=== PATIENT | female | born 1950 | race African-American/Black ===

== ENCOUNTER → 2016-10-04 | Outpatient (CLI) | payer OTHER ==
[2016-02-01 12:23] VITALS: BP 109/64
[~2016-10-04] MED LIST: BENZ100C PO; CYCL10TA2 PO; FURO-68 PO; IOHEXOL 300 MG/ML 75 ML VIAL IV ONE; LINA290C PO; LOSA50TA6 PO; LUBI24CA7 PO; METF500T4 PO; NORE-83 PO; OMEP40CA5 PO; PANT40TA3 PO; POTA20TA12 PO; SUCR1TAB35 PO; TRIA1TAB PO
[2016-10-04 08:56] LABS: CALCIUM 8.3 mg/dL (8.5-10.1); CREATININE 0.7 mg/dL (0.6-1.0); GFR 101.9; POTASSIUM 3.4 mmol/L (3.5-5.1)
--- NOTE | 2016-10-04 10:36 | RAD ---
INDICATION: Cough COMPARISON: None. TECHNIQUE: Axial CT images obtained through the chest. Intravenous contrast utilized. FINDINGS: 6 mm nodule along the fissure on the left. No evidence of pneumothorax. Mild groundglass opacities at lung bases. Postoperative changes at partially visualized upper abdomen. Probable cyst at partially visualized left kidney. Measures approximately 3 cm but only partially seen. Calcific atherosclerosis including of the coronary arteries. Suspected left lobe of thyroid nodule. Mildly prominent lymph node precarinal region measuring 8-9 mm short axis. IMPRESSION: 1. Minimal groundglass opacities dependently. Most likely cause is atelectasis but small regions of airway inflammation are not excluded. 2. Calcific atherosclerosis including coronary arteries. 3. Left lung pulmonary nodule along the fissure. Could be secondary to a fissural lymph node but a follow-up could be obtained in 6-12 months to ensure no growth. 4. Possible thyroid nodule. PQRS Compliance Statement: One or more of the following individualized dose reduction techniques were utilized for this examination: 1. Automated exposure control 2. Adjustment of the mA and/or kV according to patient size 3. Use of iterative reconstruction technique
== END | disposition home or self-care (01) ==
LOC: CT 07:43
PROVIDERS: ATTEND Internal Medicine
DX: I25.10 Atherosclerotic heart disease of native coronary artery without angina pectoris (principal)
CPT/HCPCS: 36415; 71260; 80048; Q9967

== ENCOUNTER → 2016-10-24 | Outpatient (CLI) | payer OTHER ==
[2016-02-01 12:23] VITALS: BP 109/64
[~2016-10-24] MED LIST changes: -IOHEXOL 300 MG/ML 75 ML VIAL IV ONE
--- NOTE | 2016-10-24 13:54 | KCIC ---
Thyroid ultrasound HISTORY: Nodule on CT scan.. COMPARISON: None are available FINDINGS: Right lobe: Measures 3.8 cm x 1.4 cm x 1.2 cm. 12 mm cyst identified near the upper pole, with internal echogenic reflectors likely indicative of calcifications. No significant hypervascularity. Multiple additional small subcentimeter nodules or cysts. Left lobe: 3.6 cm x 1.4 cm x 1.2 cm in size. Cyst in the upper pole measures 9 mm long axis. There is a small mural nodule within this cyst. Second smaller cyst just superior to this, measures 5 mm long axis diameter with some internal reflectors or calcifications. No significant or concerning hypervascularity identified. There are multiple additional smaller subcentimeter nodules versus cysts. Isthmus: Measures 1.5 mm thickness. IMPRESSION: Multiple bilateral thyroid cysts and nodules. One dominant lesion on the right and 2 dominant lesions on the left with internal complexity, recommend follow-up with thyroid ultrasound. Electronically signed by: Todd Encarnacion MD (10/24/2016 1:51 PM) [id number]
--- NOTE | 2016-10-24 14:12 | KCIC ---
DEXA study Indication: Osteoporosis screening Findings: The bone mineral density of the lumbar spine L1-L4 1.007 g/cm^2 T score: -0.4 The average bone mineral density of the left femur: 0.858 g/cm^2 T score of -0.7. According to the world health organization (WHO): Normal: T score at or above -1 standard deviation Osteopenia: T score between -1 and -2.5 standard deviations Osteoporosis: T score at or below -2.5 standard deviations. Impression: Bone mineral density within normal limits. Electronically signed by: Joesph Conroy MD (10/24/2016 2:09 PM) [place] [id number]
== END | disposition home or self-care (01) ==
LOC: KCIC US 12:45
PROVIDERS: ATTEND Internal Medicine
DX: Z12.31 Encounter for screening mammogram for malignant neoplasm of breast (principal); Z13.820 Encounter for screening for osteoporosis; E04.1 Nontoxic single thyroid nodule; Z78.0 Asymptomatic menopausal state
CPT/HCPCS: 76536; 77080; G0202; 77067

== ENCOUNTER → 2016-11-06 | Outpatient (CLI) | payer OTHER ==
[2016-02-01 12:23] VITALS: BP 109/64
--- NOTE | 2016-11-07 08:47 | KCIC ---
Right breast ultrasound: Reason for examination: Right breast density. Comparison is made to mammographic examination dated 10/24/2016. Ultrasound examination was performed with attention to the medial right breast. A vascular structure present in the 4:00 position shows suggestion of some mild fusiform dilatation. This may correspond to the area of mammographic concern. No other focal cystic or solid lesions are identified. IMPRESSION: No suspicious breast parenchymal lesions identified. Mild fusiform dilatation of an artery at the 4:00 position. Recommend reevaluation in 6 months with mammograms and ultrasound. BI-RADS Category 3: Probably Benign. "Our facility is accredited by the [employer] Mammography Program." This patient's information has been entered into a reminder system for the patient to be notified with the results of her examination and a target date for the next mammogram. Electronically signed by: Tisha Curtis MD (11/07/2016 8:44 AM) [id number]
== END | disposition home or self-care (01) ==
LOC: KCIC US 09:41
PROVIDERS: ATTEND Internal Medicine
DX: N63 Unspecified lump in breast (principal)
CPT/HCPCS: 76641

== ENCOUNTER → 2017-06-24 | Outpatient (CLI) | payer MEDICARE ==
[~2017-06-24] MED LIST changes: -BENZ100C PO; +CONTRAST GIVEN MC; -CYCL10TA2 PO; -FURO-68 PO; +IOHEXOL 300 MG/ML 100ML VIAL. IV; -LINA290C PO; -LOSA50TA6 PO; -LUBI24CA7 PO; -METF500T4 PO; -NORE-83 PO; -OMEP40CA5 PO; -PANT40TA3 PO; -POTA20TA12 PO; -SUCR1TAB35 PO; -TRIA1TAB PO
[2017-06-24 10:58] LABS: ISTAT CREATININE 0.6 mg/dL (0.6-1.1)
== END | disposition home or self-care (01) ==
LOC: KCIC CT 09:39
DX: J84.9 Interstitial pulmonary disease, unspecified (principal); J40 Bronchitis, not specified as acute or chronic; I25.10 Atherosclerotic heart disease of native coronary artery without angina pectoris; R91.8 Other nonspecific abnormal finding of lung field
CPT/HCPCS: 71250; 82565

== ENCOUNTER → 2017-11-19 | Outpatient (CLI) | payer MEDICARE ==
[2016-02-01 12:23] VITALS: BP 109/64
[~2017-11-19] MED LIST changes: +BENZ100C PO; -CONTRAST GIVEN MC; +CYCL10TA2 PO; +FURO-68 PO; -IOHEXOL 300 MG/ML 100ML VIAL. IV; +LINA290C PO; +LOSA50TA7 PO; +LUBI24CA7 PO; +METF500T16 PO; +NORE-83 PO; +OMEP40CA5 PO; +PANT40TA3 PO; +POTA20TA12 PO; +SUCR1TAB35 PO; +TRIA1TAB PO
--- NOTE | 2017-11-19 16:09 | RAD ---
LUNG VENT/PERFUSION SCAN(VQ), CHEST PA LATERAL Clinical indications: History of pulmonary embolism in July 2017, patient on Warfarin, smoked for 40 years. 2 VIEW CHEST X-RAY Comparison: June 17, 2017. Findings: No acute lung infiltrate or pleural effusion or pulmonary edema or lung mass or pneumothorax is seen. The heart size, pulmonary vasculature, mediastinum and both sukhjinder are unremarkable. The osseous structures appear intact. Impression: No acute radiographic abnormality is seen. V/Q LUNG SCAN COMPARISON: None available. TECHNIQUE: After inhalation of 7.5 mCi of Xenon 133 gas, anterior and posterior planar images of the lung monterroso were performed in the single breath and equilibrium and washout phases. After IV infusion of 6.5 mCi of technetium 99m MAA, multiplanar images of both lung monterroso were performed. FINDINGS: No ventilatory defect or significant retention of radiotracer activity is seen in the ventilation images. No segmental perfusion defect is seen. IMPRESSION: Normal V/Q lung scan. IMPRESSION: Electronically signed by: Esvin Rai MD (11/19/2017 4:05 PM) [place] [id number]
== END | disposition home or self-care (01) ==
LOC: NM 11:50
PROVIDERS: ATTEND Nurse Practitioner Gerontology
DX: I26.99 Other pulmonary embolism without acute cor pulmonale (principal); E11.9 Type 2 diabetes mellitus without complications; I10 Essential (primary) hypertension; I25.10 Atherosclerotic heart disease of native coronary artery without angina pectoris; Z90.49 Acquired absence of other specified parts of digestive tract; Z79.01 Long term (current) use of anticoagulants; Z87.891 Personal history of nicotine dependence
CPT/HCPCS: 71046; 78582; 96374; A9540; A9558